=== PATIENT | female | born 1980 | race Hispanic/Latino ===

== ENCOUNTER 2019-05-22 08:35 | Outpatient (CLI) | payer BC ==
--- NOTE | 2019-05-22 09:42 | ULT ---
ULTRASOUND OBSTETRICAL COMPLETE: DATE: 05/22/2019 HISTORY: 38-year-old female, ICD-10: "O09.522, supervision of elderly multigravida, second trimester. Complete anatomy, size, and dates" FINDINGS: There is an approximately 3 x 1.5 x 3 cm partially exophytic hypoechoic solid mass in the anterior ut erine wall number: dave lie: Transverse, head to maternal right. Maternal cervix: 4 cm. Closed. Placenta: Anterior. No placenta previa. Amniotic fluid volume: CYRUS = 14 cm heart rate: 146 bpm The following anatomy is visualized, with no evidence of anomalies: Head, cerebellum, lateral ventricles, four-chamber heart, stomach, kidneys, cord insertion, bladder, cervical spine, thoracic spine, lumbar spine, sacrum, nose and lips, upper extremities, lower extremities, and three-vessel cord. biometry: Biparietal diameter (BPD): 4.6 cm 19 w 6 d Head circumference (HC): 17.1 cm 19 w 5 d Abdominal circumference (AC): 14.3 cm 19 w 5 d Femur length (FL): 3.4 cm 20 w 6 d Average ultrasound age (AUA): 20 w 1 d Estimated date of delivery (LEXII): 10/08/2019 Estimated weight (EFW): 333 g +/- 49 g IMPRESSION: 1) Live 2nd trimester intrauterine gestation. 2) Estimated gestational age of 20 weeks, 1 days 3) transverse lie. 4) no anatomic abnormality identified. 5) evidence for subserosal uterine leiomyoma (fibroid)
== END 2019-05-22 08:36 | disposition home or self-care (01) ==
LOC: BICULT 08:35
PROVIDERS: ATTEND Family Medicine
DX: O09.522 Supervision of elderly multigravida, second trimester (principal); O34.12 Maternal care for benign tumor of corpus uteri, second trimester; D25.2 Subserosal leiomyoma of uterus; O32.2XX0 Maternal care for transverse and oblique lie, not applicable or unspecified; Z3A.20 20 weeks gestation of pregnancy
CPT/HCPCS: 76805

== ENCOUNTER 2019-09-28 05:59 | Inpatient (IN) | payer BC ==
[2019-09-28 06:33] VITALS: BMI 34.5
[2019-09-28] MEDS ORDERED: NS / Oxytocin 40 units/1000ml 1,000 ML IV PRN (06:45)
[2019-09-28] MEDS ORDERED: Ibuprofen 800 MG TAB PO PRN (06:45)
[2019-09-28] MEDS ORDERED: Ondansetron PF 4 MG/2 ML Vial IVP PRN ×2 (06:45→14:14)
[2019-09-28] MEDS ORDERED: Promethazine HCl 25 MG/ML VIAL IM PRN ×2 (06:45→14:14)
[2019-09-28] MEDS ORDERED: hydrALAZINE 20 MG/ML VIAL SLOW IVP PRN ×2 (06:45→14:14)
[2019-09-28] MEDS ORDERED: Lidocaine 1% (PF) 30 ML VIAL SC PRN (06:45)
[2019-09-28] MEDS ORDERED: HYDROcodone/Acetaminophen 5/325 mg Tablet PO PRN ×4 (06:45→14:14)
[2019-09-28] MEDS ORDERED: Misoprostol 200 MCG TAB PR PRN (06:45)
[2019-09-28] MEDS ORDERED: NS w/ Oxytocin 10 units 500 ML IV SCH (06:45)
[2019-09-28] MEDS ORDERED: Meperidine HCl/PF 25 MG/ML VIAL IM/IV PRN (06:45)
[2019-09-28] MEDS ORDERED: Butorphanol Tartrate 1 MG/ML VIAL SLOW IVP PRN (06:45)
[2019-09-28] MEDS ORDERED: Lactated Ringer's 1,000 ML IV SCH (06:45)
--- NOTE | 2019-09-28 07:00 | PDOC.LDHP ---
Labor and Delivery H&P Chief complaint: contractions HPI: 39 yo LAF c/o UCs since 299. Denies ROM. Current gestational age (weeks): 39 Due date: 10/04/19 Dating criteria: last menstrual period Grav: 5 Para: 4 OB History Details: at term x4 Current complications: none Abnormal US findings: No Past Medical History: none Current medications: pre-gisela vitamins Previous surgical history: none Allergies/Adverse Reactions: Allergies Allergy/AdvReac Type Severity Reaction Status Date / Time No Known Drug Allergies Allergy Verified 09/28/19 06:22 Social history: none - Physical Exam Vital signs reviewed and normal: yes General: breathing through contractions Heart: RRR Lungs: CTAB Abdomen: gravid Extremeties: trace edema FHT: category 1 [place] contractions every: q 2-3 mins - Vaginal Exam cm dilated: 4 Effacement: 75% Station: -2 - OB Labs GBS: negative - Assessment L&D Assessment: term patient in labor - Plan Plan: admit to L&D, informed consent obtained, other (Dr. Zamudio notied of admit by L&D staff)
[2019-09-28] MEDS: Lactated Ringer's 1,000 ML IV SCH ×2 (07:38→10:40)
[2019-09-28 07:54] LABS: Hemoglobin 12.9 g/dL (12.0-16.0); Mean Corpuscular Hemoglobin 31.5 pg (27.0-31.0); Mean Corpuscular Volume 89.9 fL (78.0-98.0); Mean Platelet Volume 9.9 fL (7.4-10.4); Platelet Count 212 thou/uL (130-400); RBC Distribution Width 12.3 % (11.5-14.5); Red Blood Cell (RBC) Count 4.09 mill/uL (4.20-5.40)
[2019-09-28] MEDS ORDERED: Bupivacaine 0.25% HCL 30 ML VIAL ONE (08:27)
[2019-09-28] MEDS ORDERED: Lidocaine 1% (PF) 30 ML VIAL ONE (08:30)
[2019-09-28] MEDS ORDERED: NS / Oxytocin 40 units/1000ml 1,000 ML ONE (08:30)
[2019-09-28 08:33] LABS: HBSAg Index 0.16 S/CO (0-0.99); Hep B Surf Ag Non-Reactive S/CO (NonReactive)
[2019-09-28 08:40] LABS: Syphilis Antibody Nonreactive (Nonreactive); Syphilis Antibody Index 0.03 S/CO (<1.00 Non-Reactive)
[2019-09-28] MEDS ORDERED: Fentanyl 4 mcg/Bup 0.1% Cadd 100 ML ONE (10:29)
[2019-09-28] MEDS ORDERED: diphenhydrAMINE 25 MG CAP PO PRN (14:14)
[2019-09-28] MEDS ORDERED: Milk Of Magnesia 30 ML UDCUP PO PRN (14:14)
[2019-09-28] MEDS ORDERED: Bisacodyl 10 MG SUPP PR PRN (14:14)
[2019-09-28] MEDS ORDERED: Lanolin Ointment 7 GM TUBE TOP PRN (14:14)
[2019-09-28] MEDS ORDERED: NS / Oxytocin 40 units/1000ml 1,000 ML IV SCH (14:14)
[2019-09-28] MEDS ORDERED: Adacel (T-DAP) 0.5 ML SYRINGE IM ONE (14:14)
[2019-09-28] MEDS ORDERED: Benzocaine-Menthol 82.5 ML CAN TOP PRN (14:14)
[2019-09-28] MEDS: Ibuprofen 800 MG TAB PO SCH ×2 (15:48→22:05)
[2019-09-28] MEDS: Ferrous Sulfate 325 MG TAB PO SCH (16:55)
[2019-09-28] MEDS ORDERED: cloNIDine 0.1 MG TAB PO PRN (16:56)
[2019-09-28] MEDS ORDERED: Sodium Chloride 0.9% 10 ML ONE (21:37)
[2019-09-28] MEDS: Docusate Calcium (SURFAK) 240 MG CAP PO SCH (22:05)
[2019-09-29 06:03] LABS: Hemoglobin 11.9 g/dL (12.0-16.0); Mean Corpuscular HGB CONC 35.8 g/dL (32.0-36.0); Mean Corpuscular Hemoglobin 32.3 pg (27.0-31.0); Mean Corpuscular Volume 90.1 fL (78.0-98.0); Mean Platelet Volume 9.8 fL (7.4-10.4); Platelet Count 166 thou/uL (130-400); RBC Distribution Width 12.3 % (11.5-14.5); Red Blood Cell (RBC) Count 3.68 mill/uL (4.20-5.40); White Blood Cell (WBC) Count 12.5 thou/uL (4.8-10.8)
[2019-09-29] MEDS: Ibuprofen 800 MG TAB PO SCH ×3 (06:24→21:58)
[2019-09-29] MEDS: Ferrous Sulfate 325 MG TAB PO SCH ×2 (07:26→15:22)
[2019-09-29] MEDS: NIFEdipine XL 30 MG TAB PO SCH (08:35)
[2019-09-29] MEDS: Docusate Calcium (SURFAK) 240 MG CAP PO SCH ×2 (08:35→21:58)
[2019-09-29] MEDS: Prenatal Vitamin 1 TAB PO SCH (08:35)
[2019-09-30] MEDS: Ibuprofen 800 MG TAB PO SCH ×2 (05:35→13:51)
[2019-09-30] MEDS: Ferrous Sulfate 325 MG TAB PO SCH ×2 (07:19→15:17)
[2019-09-30] MEDS: Docusate Calcium (SURFAK) 240 MG CAP PO SCH (08:32)
[2019-09-30] MEDS: Prenatal Vitamin 1 TAB PO SCH (08:32)
[2019-09-30] MEDS: NIFEdipine XL 30 MG TAB PO SCH (08:32)
[2019-09-30 11:14] VITALS: BP 134/87; TEMP 98.6
== END 2019-09-30 18:45 | disposition home or self-care (01) | DRG 807 ==
LOC: L&D/OP 05:59 → L&D 11:30 → 3SW 14:37
PROVIDERS: ADMIT Family Medicine; ATTEND Family Medicine
PROC: 10E0XZZ Delivery of Products of Conception, External Approach (ICD-10-PCS; principal; 2019-09-28)
PROC: 10907ZC Drainage of Amniotic Fluid, Therapeutic from Products of Conception, Via Natural or Artificial Opening (ICD-10-PCS; 2019-09-28)
DX: O13.9 Gestational [pregnancy-induced] hypertension without significant proteinuria, unspecified trimester (principal); Z37.0 Single live birth; Z3A.39 39 weeks gestation of pregnancy
CPT/HCPCS: 36415; 51702; 85027; 86780; 86850; 86900; 86901; 87340; 99285; J2001; S0020

== ENCOUNTER 2022-08-02 06:12 | Emergency (ER) | payer OTHER, BC ==
[2022-08-02] MEDS ORDERED: HYDROcodone/Acetaminophen 10/325 mg Tablet ONE (06:56)
== END 2022-08-02 07:41 | disposition home or self-care (01) ==
LOC: ERS 06:12
DX: S16.1XXA Strain of muscle, fascia and tendon at neck level, initial encounter (principal); I10 Essential (primary) hypertension; V09.9XXA Pedestrian injured in unspecified transport accident, initial encounter
CPT/HCPCS: 70450; 72125

== ENCOUNTER 2022-08-05 11:10 | Emergency (ER) | payer BC | END 2022-08-05 13:23 | disposition home or self-care (01) | LOC: ERS 11:10 | DX: M25.511 Pain in right shoulder (principal); I10 Essential (primary) hypertension; W18.30XA Fall on same level, unspecified, initial encounter; Z79.899 Other long term (current) drug therapy ==